=== PATIENT | male | born 1970 | race Caucasian/White ===

== ENCOUNTER 2018-08-18 17:56 | Emergency (ER) | payer OTHER ==
[~2018-08-18] VITALS: Ht 172.7 cm; Wt 86.2 kg
[2018-08-18 17:59] VITALS: BP 126/83
--- NOTE | 2018-08-18 18:10 | NUR ---
BIB SELF. AAO X4 C/O LEFT HAND REDNESS, SWOLLEN & ACHING PAIN OF 10/10 RADIATING TO LEFT ARM X TODAY. PT STATED HE GOT CUT WITH SOME PIECES OF GLASSES BROKE ON THE FLOOR YESTERDAY. + MOVEMENT TO L HAND AND FINGERS, CAP REFILL < 3 SECONDS, +SENSATION TO L ARM AND HAND. HOB UP. BED SIDE RAILS UP X1. ON LOW BED POSITION, LOCKED. ER MADE AWARE OF PT STATUS.
--- NOTE | 2018-08-18 18:10 | NUR ---
PT AMB TO BED 4
--- NOTE | 2018-08-18 18:50 | NUR ---
PA AT BEDSIDE FOR PT EVALUATION
--- NOTE | 2018-08-18 19:10 | NUR ---
Pt report given to AMENA Andrews. Transfer of care at this time.
--- NOTE | 2018-08-18 19:11 | NUR ---
REPORT RECEIVED FROM AMENA ANTONIO.
[2018-08-18] MEDS ORDERED: KETOROLAC 30 MG/ML VIAL IM ONE (19:20)
--- NOTE | 2018-08-18 19:26 | NUR ---
XRAY AT BEDSIDE.
--- NOTE | 2018-08-18 19:32 | NUR ---
TORADOL 30 MG IM GIVEN FOR PAIN/INFLAMMATION.
--- NOTE | 2018-08-18 19:47 | NUR ---
BENTON PARRA AT BEDSIDE PERFORMING INCISION AND DRAINAGE WITH BETADINE AND BACITRACIN.
[2018-08-18] MEDS ORDERED: BACITRACIN OINT 500 UNITS/GM PKT TP ONE (19:57)
[2018-08-18] MEDS ORDERED: cefTRIAXone 500 MG in LIDOCAINE MPF 1% - 5 mL VIAL 1 ML IM ONE (20:00)
[2018-08-18 20:36] VITALS: BP 135/82
--- NOTE | 2018-08-18 20:36 | NUR ---
Patient discharged with v/s stable. Written and verbal after care instructions given and explained. Patient alert, oriented and verbalized understanding of instructions. Ambulatory with steady gait. All questions addressed prior to discharge. ID band removed. Patient advised to follow up with PMD. Rx of Keflex, Ibuprofen, and Bactrim DS given. Patient educated on indication of medication including possible reaction and side effects. Opportunity to ask questions provided and answered.
== END 2018-08-18 20:36 | disposition home or self-care (01) ==
LOC: MED 17:56
DX: S60.222A Contusion of left hand, initial encounter (principal); L03.114 Cellulitis of left upper limb; W25.XXXA Contact with sharp glass, initial encounter; Y93.H9 Activity, other involving exterior property and land maintenance, building and construction; Y92.59 Other trade areas as the place of occurrence of the external cause; Y99.8 Other external cause status
CPT/HCPCS: 10060; 73130; 96372; 99283; J0696; J1885; J2001; Q0092

== ENCOUNTER 2018-08-19 14:24 | Emergency (ER) | payer OTHER ==
[~2018-08-19] VITALS: Ht 170.2 cm; Wt 84.4 kg
[2018-08-19 14:34] VITALS: BP 145/70
--- NOTE | 2018-08-19 14:40 | NUR ---
PATIENT AMBULATED TO ER BED 3.
--- NOTE | 2018-08-19 14:45 | NUR ---
PT IS A 48 Y/O MALE WHO PRESENTS TO THE ED C/O L ARM ABSCESS. PT STATES THAT HE WAS SEEN PREV IN THE ED YESTERDAY AND HAD IT DRAINED BUT IT CAME BACK. PT WAS ALSO GIVEN RX BACTRIM WHICH HAS NOT YET BEEN FILLED. NOTED ABSCESS TO L HAND WITH RED TRACT UP THE L ARM. PT REPORTS 10/10 ACHING L ARM PAIN THAT DOES NOT RADIATE. NO OBVIOUS TRAUMA/DEFORMITY. PT DENIES CP, SOB, N/V/D. PT AWAKE AND ALERT, RR EVEN/UNLABORED. PT REPOSITIONED FOR COMFORT, BED IN LOWEST POSITION. ER MD DR. HYMAN NOTIFIED. WILL CONTINUE TO MONITOR. NKA PMH: NONE
[2018-08-19] MEDS ORDERED: LIDOCAINE 1% ***ER ONLY *** 10 MG/ML VIAL INJ ONE (15:20)
[2018-08-19] MEDS ORDERED: KETOROLAC 60 MG/2 ML VIAL IM ONE (15:20)
--- NOTE | 2018-08-19 15:23 | NUR ---
LIDOCAINE 1% 50MG/5ML GIVEN TO RESIDENT DOCTOR PER VERBAL ORDER FOR LAC/PAIN
[2018-08-19] MEDS ORDERED: LIDOCAINE MPF 1% 5mL VIAL ONE (15:31)
[2018-08-19 16:30] VITALS: BP 139/72
--- NOTE | 2018-08-19 16:31 | NUR ---
Patient discharged with v/s stable. Written and verbal after care instructions given and explained. Patient alert, oriented and verbalized understanding of instructions. Ambulatory with steady gait. All questions addressed prior to discharge. ID band removed. Patient advised to follow up with PMD. Rx of MOTRIN AND NORCO given. Patient educated on indication of medication including possible reaction and side effects. Opportunity to ask questions provided and answered.
== END 2018-08-19 16:31 | disposition home or self-care (01) ==
LOC: MED 14:24
DX: L02.414 Cutaneous abscess of left upper limb (principal); L03.114 Cellulitis of left upper limb
CPT/HCPCS: 10060; 96372; 99283; J1885; J2001

== ENCOUNTER 2018-10-07 16:01 | Emergency (ER) | payer OTHER ==
[~2018-10-07] VITALS: Ht 172.7 cm; Wt 86.2 kg
--- NOTE | 2018-10-07 16:01 | NUR ---
PT BIB [facility] TO ER BED 09
[2018-10-07 16:04] VITALS: BP 135/80
--- NOTE | 2018-10-07 16:04 | NUR ---
MICHELLE JALLOH. [employer] [facility]. PT C/O PAIN AT RT ARM 01/27 DUE TO THROENS AT HIS ARM WHILE RUNNING AWAY FROM PD. PT IS HANDCUFFE AT BEDSIDE BY PD. GONZALES TO SEE THE PT.B WILL CONTIUE TO MONITOR PT.
--- NOTE | 2018-10-07 16:52 | NUR ---
Patient discharged with v/s stable. Written and verbal after care instructions given and explained. Patient verbalized understanding. Police with in custody. All questions addressed prior to discharge. Advised to follow up with PMD.
== END 2018-10-07 16:52 | disposition home or self-care (01) ==
LOC: MED 16:01
DX: S40.852A Superficial foreign body of left upper arm, initial encounter (principal); S40.851A Superficial foreign body of right upper arm, initial encounter; W45.8XXA Other foreign body or object entering through skin, initial encounter; Y93.02 Activity, running; Y92.89 Other specified places as the place of occurrence of the external cause; Y99.8 Other external cause status
CPT/HCPCS: 99283; 99284